=== PATIENT | male | born 1990 | race Caucasian/White ===

== ENCOUNTER 2021-07-23 16:45 | Emergency (ER) | payer BC, SELFPAY ==
[2021-07-23 16:53] VITALS: BP 135/76; PULSE 95; RESP 16; TEMP 36.8; O2SAT 99
--- NOTE | 2021-07-23 16:56 | ED.SKABFB ---
HPI - Skin/Abscess/Foreign Bdy General Chief complaint: Skin/Abscess/Foreign Body Stated complaint: rash Time Seen by Provider: 07/23/21 16:50 Source: patient and RN notes reviewed History of Present Illness HPI narrative: Patient is a 31-year-old male who presents the urgent care with complaints of poison tobin to the torso, bilateral arms, and forehead. Patient states he also noticed areas on the groin. Believes he came in contact with the poison tobin on Wednesday and he has been treating it with Benadryl cream and calamine. Denies any other acute complaints. No acute distress noted. Patient aware of the plan of care. Some parts of this dictation were generated by voice recognition software and may contain typographical and/or grammatical inaccuracies. Related Data Allergies Allergy/AdvReac Type Severity Reaction Status Date / Time No Known Allergies Allergy Verified 07/23/21 16:53 Review of Systems Review of Systems: CONSTITUTIONAL: Denies fever, chills, or sweats. EYES: Denies visual changes, redness, or discharge. ENT: Denies rhinorrhea, congestion, sore throat, or otalgia. CARDIOVASCULAR: Denies chest pain, palpitations, or edema. RESPIRATORY: Denies cough or dyspnea. GASTROINTESTINAL: Denies abdominal pain, nausea, vomiting, or diarrhea. GENITOURINARY: Denies dysuria or hematuria. SKIN: Reports of poison tobin to bilateral arms, right torso, groin and forehead MUSCULOSKELETAL: Denies back pain, joint pain, or myalgia. NEUROLOGIC: Denies headache, numbness, or weakness. All other systems reviewed are negative, except as documented in HPI. PMFSH Comments At the time of my signature, I reviewed and agree with the nursing past medical, surgical, social, and family history. There is no relevant family history pertinent to the patient complaint. Exam Narrative: GENERAL: This is a well-nourished, well-developed patient, in no apparent distress. HEAD: normocephalic, atraumatic. EYES: PERRL. Sclera clear/white. Vision is grossly intact. EARS: External ears normal NOSE: External nose normal with no obvious nasal discharge, nares without redness, no rhinorrhea. THROAT: Mucous membranes moist NECK: Neck supple CARDIOVASCULAR: Regular rate and rhythm without murmurs, gallops, or rubs. RESPIRATORY: Clear to auscultation. Breath sounds equal bilaterally. No wheezes, rales, or rhonchi. SKIN: Pruritic erythemic Rhus dermatitis noted to bilateral lower arms, right torso, mid forehead, and reported to the groin NEURO: awake, alert, and oriented to person, place and time. There were no obvious focal neurologic abnormalities. EXTREMITIES: No clubbing, cyanosis, or edema. Course Vital Signs Vital signs: Vital Signs Temperature 98.2 F 07/23/21 16:53 Pulse Rate 95 07/23/21 16:53 Respiratory Rate 16 07/23/21 16:53 Blood Pressure 135/76 07/23/21 16:53 Pulse Oximetry 99 07/23/21 16:53 Temperature 98.2 F 07/23/21 16:53 Pulse Rate 95 07/23/21 16:53 Respiratory Rate 16 07/23/21 16:53 Blood Pressure 135/76 07/23/21 16:53 Pulse Oximetry 99 07/23/21 16:53 Reviewed MDM - Skin/Abscess/Foreign Bdy MDM Narrative Medical decision making narrative: Advised the patient to complete the steroid regimen as prescribed. Be sure to eat and drink with the medication. Use the prescription cream to the affected areas as directed avoiding the groin, underarms and near the eyes. Continue to use [id number] itch relief cream if necessary. Also use TecNu scrub daily while showering. If you develop any increase spread of the rash to the eyes?go to the emergency room. Follow-up with your PCP within 2 to 5 days or for worsening symptoms or failure to improve. Differential Diagnosis Differential diagnosis: Likely abscess of skin or subcutaneous tissue, dermatophytosis, urticaria, eczema, insect bites, impetigo and contact dermatitis Critical Care Time Critical Care Time Critical Care Time: No Discharge Plan Discharge Cl
== END 2021-07-23 17:03 | disposition home or self-care (01) ==
PROVIDERS: Emergency Provider Nurse Practitioner Family; PCP Physician Assistant
DX: L23.7 Allergic contact dermatitis due to plants, except food (principal)
CPT/HCPCS: 99213; G0463

== ENCOUNTER 2022-07-08 20:49 | Emergency (ER) | payer BC, SELFPAY ==
[2022-07-08 20:55] VITALS: BP 150/95; PULSE 96; RESP 18; TEMP 36.7; O2SAT 99
[2022-07-08 22:03] LABS: Basophils Absolute Auto 0.1 K/mm3 (0.0-0.1); Basophils Percent Auto 0.5 % (0.2-1.2); Eosinophils Absolute Auto 0.1 K/mm3 (0-0.3); Eosinophils Percent Auto 1.2 % (0-4.4); Hematocrit 45.4 % (42.0-52.0); Hemoglobin 15.8 g/dL (14.0-18.0); Immature Granulocyte Absolute 0.04 K/mm3 (0.00-0.031); Immature Granulocyte Percent A 0.4 % (0-0.5); Lymphocytes Percent Auto 19.8 % (18.3-44.2); Mean Corpuscular HGB Conc 34.8 g/dl (32-36); Mean Corpuscular Hemoglobin 30.9 pg (26-34); Mean Corpuscular Volume 88.7 fl (80-100); Monocytes Absolute Auto 0.5 K/mm3 (0.1-0.6); Monocytes Percent Auto 4.4 % (2.6-8.5); Neutrophils Absolute Auto 8.2 K/mm3 (1.3-6.7); Neutrophils Percent Auto 73.7 % (45.5-73.1); Platelet Count Result 365 k/mm3 (150-375); Red Blood Count 5.12 M/mm3 (4.6-6.20); Red Cell Distribution Width 12.6 % (11.5-14.5); White Blood Count 11.1 K/mm3 (4.5-10.0)
[2022-07-08 22:06] LABS: Appearance Urine Clear (Clear); Bilirubin Urine 1+ (Negative); Blood Urine Negative (Negative); Color Urine Yellow (Yellow); Glucose Urine UA Negative (Negative); Ketones Urine Trace mg/dL (Negative); Leukocyte Esterase Ur Negative LEU/UL (Negative); Nitrate Urine Negative (Negative); Protein Urine Negative (Negative); Specific Grav Ur >= 1.030 (1.001-1.035); Urobilinogen Urine 0.2 mg/dL (<2.0); pH Urine 5.5 (5.0-9.0)
[2022-07-08 22:16] LABS: Alanine Aminotransferase 30 U/L (6-50); Alkaline Phosphatase 99 U/L (38-126); Anion Gap 15 mmol/L (8-16); Aspartate Amino Transferase 31 U/L (17-59); Bilirubin,Total 0.6 mg/dL (0.2-1.3); Blood Urea Nitrogen 11 mg/dL (9-20); Calcium 9.3 mg/dL (8.4-10.2); Carbon Dioxide 24 mmol/L (22-30); Chloride 105 mmol/L (98-107); Estimated CRCL calculation 168 ml/min; Estimated Glomerular Filt Rate > 60; Glucose 118 mg/dL (65-110); Potassium 3.6 mmol/L (3.4-5.0); Sodium 144 mmol/L (137-145)
[2022-07-08 22:17] LABS: Ethanol < 10 mg/dL (<10)
[2022-07-08 22:17] LABS: Amphetamine Screen Urine Negative (Negative); Barbiturate Screen Urine Negative (Negative); Benzodiazepines Screen Urine Negative (Negative); Cannabinoid Screen Urine Positive (Negative); Cocaine Screen Urine Negative (Negative); Methadone Screen Urine Negative (Negative); Opiate Screen Urine Negative (Negative); Phencyclidine Screen Urine Negative (Negative)
[2022-07-08 22:18] LABS: Add Urine Microscopic? YES; Mucus Urine Rare /lpf; RBC Urine 0-2 /hpf (0-2); WBC Urine 0-3 /hpf
--- NOTE | 2022-07-08 22:25 | ED.PSYCH ---
HPI - Psych General Chief Complaint: Psychiatric Symptoms Stated Complaint: suicidal Time Seen by Provider: 07/08/22 21:16 History of Present Illness HPI Narrative: Patient states he has been in a lot of stress, he has been fighting with his baby's mother, and 2 days ago he had strong feelings of wanting to hurt himself, though he has no plan. He had told his brother that he would get his car. He states that he is not currently entertaining thoughts of hurting himself at this time, he just had his baby daughter born yesterday and he is excited and thrilled and wants to be there for her. Currently taking sertraline and Concerta, and seeing a psychiatrist, but has not been able to get into see a therapist yet. Related Data Allergies Allergy/AdvReac Type Severity Reaction Status Date / Time No Known Allergies Allergy Verified 07/08/22 21:03 Review of Systems Review of Systems: CONST: No fever. HEENT: No sore throat C/V: No chest pain RESP: No cough GI: No abdominal pain : No dysuria. M/S: No joint pain. SKIN: No rash. NEURO: [No headache or focal numbness or weakness] PSYCH: Anxious, no suicidal ideation currently [facility] Past Medical History Medical History (Updated 07/09/22 @ 08:16 by Bonnie Terrell MD) Depression Social History Social History Substance use type: does not use Exam Narrative: EXAMINATION OF ORGAN SYSTEMS/BODY AREAS: Constitutional: Vital signs per nursing GENERAL:[No acute distress, non-toxic appearing.] HEAD: Normal with no signs of head trauma. EYES: EOMI, conjunctiva normal ENT: Hearing grossly intact LUNGS: Nonlabored breathing. HEART: [Regular rate and rhythm] ABD: Nondistended EXT: Normal range of motion SKIN: [No rashes or lesions.] NEURO: [Alert and oriented x 3. No gross focal sensory or strength deficits.] PSYCH: Normal affect Course Vital Signs Vital signs: Vital Signs Temperature 98.1 F 07/08/22 20:55 Pulse Rate 96 07/08/22 20:55 Respiratory Rate 18 07/08/22 20:55 Blood Pressure 150/95 H 07/08/22 20:55 Pulse Oximetry 99 07/08/22 20:55 Oxygen Delivery Room Air 07/08/22 20:55 Temperature 98.1 F 07/08/22 20:55 Pulse Rate 72 07/09/22 04:17 Respiratory Rate 18 07/09/22 04:17 Blood Pressure 145/77 H 07/09/22 04:17 Pulse Oximetry 98 07/09/22 04:17 Oxygen Delivery Room Air 07/08/22 20:55 MDM - Psych MDM Narrative Medical decision making narrative: 32-year-old male presenting with depression and anxiety, vital signs stable, normal exam, labs only notable for cannabis. Medically cleared at this time for psychiatric evaluation. He was seen by psychiatry resident who in discussion with his mother in the room, did feel he was safe to go home, safety plan discussed, patient is denying any thoughts of wanting hurt himself at this time, I do feel he is stable for discharge and he is to follow-up with his psychiatrist and return for any further issues. Lab Data Result diagrams: 07/08/22 21:55 07/08/22 21:54 Labs: Lab Results 07/08/22 07/08/22 07/08/22 Range/Units 21:54 21:54 21:55 WBC (4.5-10.0) K/mm3 RBC (4.6-6.20) M/mm3 Hgb (14.0-18.0) g/dL Hct (42.0-52.0) % MCV (80-100) fl MCH (26-34) pg MCHC (32-36) g/dl RDW (11.5-14.5) % Plt Count (150-375) k/mm3 MPV (7.4-10.4) fl Immature Gran % (Auto) (0-0.5) % Neut % (Auto) (45.5-73.1) % Lymph % (Auto) (18.3-44.2) % Thomas % (Auto) (2.6-8.5) % Eos % (Auto) (0-4.4) % Baso % (Auto) (0.2-1.2) % Lymph # (Auto) (0.9-3.2) K/mm3 Thomas # (Auto) (0.1-0.6) K/mm3 Eos # (Auto) (0-0.3) K/mm3 Baso # (Auto) (0.0-0.1) K/mm3 Abs Immat Gran (auto) (0.00-0.031) K/mm3 Absolute Neuts (auto) (1.3-6.7) K/mm3 Absolute Nucleated RBC (0.0-0.012) K/mm3 Nucleated RBC % (0.0-0.2) % Sodium 144 (137-145) mmol/L Potassium 3.6 (3.4-5.0) mmol/L Chlori
[2022-07-08 22:39] LABS: SARS-CoV-2 RNA PCR Negative
[2022-07-08 22:46] LABS: Thyroid Stimulating Hormone 0.752 uIU/mL (0.465-4.680)
--- NOTE | 2022-07-09 01:17 | PC.NURSE ---
Per ED Charge Nurse Jennifer and EDP Xander we are able to pull the sitter off of this patient because he is no risk at this time.
[2022-07-09 04:17] VITALS: BP 145/77; PULSE 72; RESP 18; O2SAT 98
== END 2022-07-09 04:21 | disposition home or self-care (01) ==
PROVIDERS: Emergency Medicine; Emergency Provider Emergency Medicine; PCP Physician Assistant
DX: F32.A Depression, unspecified (principal); Z20.822 Contact with and (suspected) exposure to COVID-19
CPT/HCPCS: 36415; 80053; 80307; 81001; 84443; 85025; 99284; C9803; U0003; U0005

== ENCOUNTER 2023-07-04 12:06 | Emergency (ER) | payer BC, SELFPAY ==
[2023-07-04] VITALS (7 sets, daily range): BP systolic 122–126; BP diastolic 69–80; PULSE 58–86; RESP 13–20; TEMP 36.8; O2SAT 97–100
--- NOTE | ~2023-07-04 | CT_ITS ---
EXAMINATION: CT brain wo con INDICATION: Severe headache COMPARISON: None TECHNIQUE: Standard unenhanced head CT. The dose-length product (DLP) was 605.33 mGy-cm. The mA was a djusted according to patient size. Iterative reconstruction technique was employed. FINDINGS: No intracranial hemorrhage, acute infarction, or abnormal mass lesion. The ventricles are n ormal. No abnormal mass effect or midline shift. The garcia-white matter differentiation is normal. The basal cisterns are patent. Gaze appears disconjugate. The orbits are normal. The paranasal sinuses, mastoids and calvarium are normal. IMPRESSION: 1. No acute intracranial abnormality. Reviewed, dictated and finalized at location A.
--- NOTE | 2023-07-04 13:16 | ED.GENADULT ---
HPI - General Adult General Chief complaint: Headache Stated complaint: headaches/aggressive thoughts Time Seen by Provider: 07/04/23 12:55 Source: patient and RN notes reviewed Mode of arrival: ambulatory Limitations: no limitations History of Present Illness HPI narrative: This is a 33 year old male with history of Bipolar who presents for evaluation of headaches. PAtient states 3-4 months ago he hit back of his head on a cabinet. He states he has had intermittent severe headaches since this injury. He did not receive medical evaluation after that injury. He states today he had a severe headache although it has resolved now. He has intermittent nausea. He has noticed a couple of abnormal areas to his posterior scalp concerning for fracture. He denies fever or chills. HE reports increase verbal aggression with people in his life. HE denies homicidal or suicidal ideations today. Related Data Allergies Allergy/AdvReac Type Severity Reaction Status Date / Time No Known Allergies Allergy Verified 07/04/23 12:13 Review of Systems Constitutional: Constitutional: Denies weakness Cardiovascular: Cardiovascular: Denies syncope, Denies rapid heart rate, Denies irregular heart rhythm, Denies leg edema and Denies dyspnea Respiratory: Respiratory: Denies chest congestion, Denies hemoptysis, Denies excessive phlegm production and Denies dyspnea Gastrointestinal: Gastrointestinal: Denies abdominal pain, Denies hematochezia, Denies diarrhea and Denies vomiting Genitourinary: Genitourinary: Denies hematuria, Denies dysuria, Denies penile discharge and Denies testicular pain Musculoskeletal: Musculoskeletal: Denies joint swelling, Denies loss of height and Denies muscle weakness Neurologic: Denies syncope, Reports headache(s), Denies focal weakness and Denies weakness Psychiatric: Psychiatric: Reports anxiety and Reports depression PMFSH Past Medical History Medical History Bipolar disorder Depression Social History Social History (Updated 07/04/23 @ 13:22 by Lauren Trevino MD) Smoking status: Current every day smoker Tobacco type: e-cigarettes/vaping Substance use: current Substance use type: marijuana and other Exam Const: General: no acute distress and alert Nutritional Appearance: well nourished Orientation/consciousness: patient oriented x3 HENMT: Ears: external ears normal Face and sinus: normal facial exam Mouth: Yes Normal oral and palatal mucosa present, Yes lip normal and Yes moist mucous membranes Throat: uvula midline Eyes: Pupils: Equal, round and reactive pupils present EOM: EOMs intact bilaterally Neck: Neck: normal visual inspection Chest: Chest palpation & inspection: normal inspection of the chest Resp: Effort & Inspection: normal respiratory effort Neuro: General: patient oriented x3, moves all extremities and CN's II-XI intact bilaterally Cranial nerves: Yes Nystagmus not present Speech: normal speech Gait exam (Neuro): Normal gait present Extrem: General: normal to inspection Psych: Mental Status: mental status grossly normal Affect: normal affect Attitude: cooperative Course Reevaluation(s) Reevaluation #1: I Discussed with patient that CT brain was unremarkable. He will follow up with psych and PCP. no SI/HI, no psych assessment Date: 07/04/23 Time: 14:16 Vital Signs Vital signs: Vital Signs Temperature 98.3 F 07/04/23 12:09 Pulse Rate 86 07/04/23 12:09 Respiratory Rate 18 07/04/23 12:09 Blood Pressure 124/80 07/04/23 12:09 Pulse Oximetry 99 07/04/23 12:09 Oxygen Delivery Room Air 07/04/23 12:09 Temperature 98.3 F 07/04/23 12:09 Pulse Rate 58 L 07/04/23 14:38 Respiratory Rate 13 07/04/23 14:38 Blood Pressure 126/69 07/04/23 14:38 Pulse Oximetry 100 07/04/23 14:38 Oxygen Delivery Room Air 07/04/23 12:09 Medical Decision Making Vital Signs Vital Signs: Chantelle
--- NOTE | 2023-07-04 13:28 | PC.NURSE ---
pt taken to CT at this time
--- NOTE | 2023-07-04 13:39 | PC.NURSE ---
pt back in room [address]
== END 2023-07-04 14:40 | disposition home or self-care (01) ==
PROVIDERS: Emergency Provider General Practice
DX: R51.9 Headache, unspecified (principal); F17.290 Nicotine dependence, other tobacco product, uncomplicated
CPT/HCPCS: 70450; 99284

== ENCOUNTER 2023-08-23 18:27 | Emergency (ER) | payer BC, SELFPAY ==
[2023-08-23 18:36] VITALS: BP 136/84; PULSE 92; RESP 16; TEMP 36.8; O2SAT 99
[2023-08-23 19:06] LABS: Basophils Absolute Auto 0.1 K/mm3 (0.0-0.1); Basophils Percent Auto 0.6 % (0.2-1.2); Eosinophils Absolute Auto 0.1 K/mm3 (0-0.3); Eosinophils Percent Auto 1.3 % (0-4.4); Hematocrit 44.8 % (42.0-52.0); Hemoglobin 15.5 g/dL (14.0-18.0); Immature Granulocyte Absolute 0.02 K/mm3 (0.00-0.031); Immature Granulocyte Percent A 0.2 % (0-0.5); Lymphocytes Absolute Auto 2.19 K/mm3 (0.9-3.2); Mean Corpuscular HGB Conc 34.6 g/dl (32-36); Mean Corpuscular Hemoglobin 30.5 pg (26-34); Mean Corpuscular Volume 88.2 fl (80-100); Mean Platelet Volume 10.7 fl (7.4-10.4); Monocytes Absolute Auto 0.6 K/mm3 (0.1-0.6); Monocytes Percent Auto 6.7 % (2.6-8.5); Neutrophils Absolute Auto 6.5 K/mm3 (1.3-6.7); Neutrophils Percent Auto 68.2 % (45.5-73.1); Platelet Count Result 313 k/mm3 (150-375); Red Blood Count 5.08 M/mm3 (4.6-6.20); Red Cell Distribution Width 12.2 % (11.5-14.5); White Blood Count 9.5 K/mm3 (4.5-10.0)
--- NOTE | 2023-08-23 19:15 | PC.NURSE ---
Report from PANCHO Rodriguez. Assumed care of pt. Pt resting quietly per cart in nad at this time. Visitor at bedside. Sitter within line of sight, just outside door. Pt Calm and cooperative at this time. Plan of care updated with pt.
[2023-08-23 19:18] LABS: Alanine Aminotransferase 31 U/L (6-50); Alkaline Phosphatase 107 U/L (38-126); Anion Gap 13 mmol/L (8-16); Aspartate Amino Transferase 28 U/L (17-59); Bilirubin,Total 1.1 mg/dL (0.2-1.3); Blood Urea Nitrogen 9 mg/dL (9-20); Calcium 9.6 mg/dL (8.4-10.2); Carbon Dioxide 24 mmol/L (22-30); Chloride 103 mmol/L (98-107); Estimated CRCL calculation 189 ml/min; Estimated Glomerular Filt Rate > 60; Glucose 96 mg/dL (65-110); Potassium 3.9 mmol/L (3.4-5.0); Sodium 140 mmol/L (137-145)
[2023-08-23 19:19] LABS: Acetaminophen < 10 ug/mL (10-30); Ethanol < 10 mg/dL (<10); Salicylate < 1.0 mg/dL (2-20)
[2023-08-23 19:30] LABS: Add Urine Microscopic? YES; Appearance Urine Turbid (Clear); Bacteria Urine None Seen /hpf; Bilirubin Urine Negative (Negative); Blood Urine Negative (Negative); Color Urine Yellow (Yellow); Glucose Urine UA Negative (Negative); Ketones Urine 2+ mg/dL (Negative); Leukocyte Esterase Ur Negative LEU/UL (Negative); Mucus Urine Present /lpf; Need Manual Microscopic Reviewed; Nitrate Urine Negative (Negative); Non Pathogenic Casts 0-2; Protein Urine Negative (Negative); RBC Urine 0-2 /hpf (0-2); Specific Grav Ur 1.022 (1.001-1.035); Squamous Epithelial Cell Urine None seen /hpf (Few); WBC Urine 0-5 /hpf
--- NOTE | 2023-08-23 19:34 | ED.GENADULT ---
[facility] - General Adult General Chief complaint: Psychiatric Symptoms Stated complaint: i need to be in the hospital Time Seen by Provider: 08/23/23 19:07 History of Present Illness HPI narrative: Patient presents the emergency department suicidal ideations. He has attempted suicide in the past. He has been thinking about suicide and being depressed for a while. Plan today was to hang himself. He sees a therapist in his psych medications were recently changed. States he feels worse since the change. He is accompanied by family. Denies all medical complaints. Denies any alcohol or drug use. Related Data Allergies Allergy/AdvReac Type Severity Reaction Status Date / Time No Known Allergies Allergy Verified 08/23/23 18:39 Review of Systems Review of Systems: Review of systems negative except what is documented in the [facility] Past Medical History Medical History Bipolar disorder Depression Social History Social History (Updated 07/04/23 @ 13:22 by Lauren Trevino MD) Smoking status: Current every day smoker Tobacco type: e-cigarettes/vaping Substance use: current Substance use type: former substance user Exam Narrative: GENERAL: Well-appearing, well-nourished, and in no acute distress. HEAD: Normocephalic, atraumatic. EYES: PERRLA and EOMI. ENT: Nares clear, no rhinorrhea or epistaxis. Mucous membranes moist. NECK: Supple. CHEST: Clear to auscultation. No respiratory distress. HEART: Regular rate and rhythm. ABDOMEN: Soft, nontender, nondistended. EXTREMITIES: Normal range of motion. No edema. SKIN: Warm, dry, no rash. NEURO: No focal deficits. Alert and oriented x3. PSYCH: Normal mood and affect. Course Vital Signs Vital signs: Vital Signs Temperature 36.8 C 08/23/23 18:36 Pulse Rate 92 08/23/23 18:36 Respiratory Rate 16 08/23/23 18:36 Blood Pressure 136/84 08/23/23 18:36 Pulse Oximetry 99 08/23/23 18:36 Temperature 36.8 C 08/23/23 18:36 Pulse Rate 92 08/23/23 18:36 Respiratory Rate 16 08/23/23 18:36 Blood Pressure 136/84 08/23/23 18:36 Pulse Oximetry 99 08/23/23 18:36 Medical Decision Making MDM Narrative Medical decision making narrative: Labs grossly unremarkable. Vital signs stable. Patient is medically cleared for psych evaluation and possible placement Pt accepted as transfer to [facility] by Dr Alejandra Vital Signs Vital Signs: Vital Signs Temperature 36.8 C 08/23/23 18:36 Pulse Rate 92 08/23/23 18:36 Respiratory Rate 16 08/23/23 18:36 Blood Pressure 136/84 08/23/23 18:36 Pulse Oximetry 99 08/23/23 18:36 Temperature 36.8 C 08/23/23 18:36 Pulse Rate 92 08/23/23 18:36 Respiratory Rate 16 08/23/23 18:36 Blood Pressure 136/84 08/23/23 18:36 Pulse Oximetry 99 08/23/23 18:36 Lab Data 08/23/23 18:56 08/23/23 18:56 Labs: Lab Results 08/23/23 08/23/23 08/23/23 Range/Units 18:56 18:57 20:56 WBC 9.5 (4.5-10.0) K/mm3 RBC 5.08 (4.6-6.20) M/mm3 Hgb 15.5 (14.0-18.0) g/dL Hct 44.8 (42.0-52.0) % MCV 88.2 (80-100) fl MCH 30.5 (26-34) pg MCHC 34.6 (32-36) g/dl RDW 12.2 (11.5-14.5) % Plt Count 313 (150-375) k/mm3 MPV 10.7 H (7.4-10.4) fl Immature Gran % (Auto) 0.2 (0-0.5) % Neut % (Auto) 68.2 (45.5-73.1) % Lymph % (Auto) 23.0 (18.3-44.2) % Sierra % (Auto) 6.7 (2.6-8.5) % Eos % (Auto) 1.3 (0-4.4) % Baso % (Auto) 0.6 (0.2-1.2) % Lymph # (Auto) 2.19 (0.9-3.2) K/mm3 Sierra # (Auto) 0.6 (0.1-0.6) K/mm3 Eos # (Auto) 0.1 (0-0.3) K/mm3 Baso # (Auto) 0.1 (0.0-0.1) K/mm3 Abs Immat Gran (auto) 0.02 (0.00-0.031) K/mm3 Absolute Neuts (auto) 6.5 (1.3-6.7) K/mm3 Absolute Nucleated RBC 0.0 (0.0-0.012) K/mm3 Nucleated RBC % 0.0 (0.0-0.2) % Sodium 140 (137-145) mmol/L Potassium 3.9 (3.4-5.0)
[2023-08-23 20:49] LABS: Barbiturate Screen Urine Negative (Negative); Benzodiazepines Screen Urine Negative (Negative)
[2023-08-23 20:53] LABS: Amphetamine Screen Urine Negative (Negative); Cannabinoid Screen Urine Positive (Negative); Cocaine Screen Urine Negative (Negative); Methadone Screen Urine Negative (Negative); Opiate Screen Urine Negative (Negative); Phencyclidine Screen Urine Negative (Negative)
--- NOTE | 2023-08-23 21:31 | PC.NURSE ---
Crisis reports that they will arrive in approx 20 min.
[2023-08-23 21:39] LABS: Influenza A QL RT-PCR Negative (Negative); Influenza B QL RT-PCR Negative (Negative); RSV RNA, RT-PCR Negative (Negative); SARS-CoV-2 RNA PCR Negative (Negative)
--- NOTE | 2023-08-23 21:55 | PC.NURSE ---
Crisis at bedside.
--- NOTE | 2023-08-24 01:05 | PC.NURSE ---
Spoke with [facility] Intake for questions regarding possible placement. Pt sleeping at this time. Sitter remains within line of sight.
--- NOTE | 2023-08-24 01:42 | PC.NURSE ---
Report given to Adelaide tracy [facility]. Pt to go to [address] Alejandra.
[2023-08-24 01:52] VITALS: BP 120/77; PULSE 98; RESP 14; TEMP 36.8; O2SAT 100
== END 2023-08-24 03:59 ==
PROVIDERS: Emergency Medicine; Emergency Provider Emergency Medicine
DX: F32.A Depression, unspecified (principal); R45.851 Suicidal ideations
CPT/HCPCS: 36415; 80053; 80307; 81001; 84443; 85025; 87637; 99285

== ENCOUNTER 2024-06-25 12:09 | Emergency (ER) | payer BC, SELFPAY ==
[2024-06-25 12:17] VITALS: BP 156/91; PULSE 98; RESP 17; TEMP 36.6; O2SAT 99
--- NOTE | 2024-06-25 12:30 | PC.NURSE ---
Pt reports psychiatrist moved & did not notify pts. Next available appointment with psychiatrist that took over practice is January Pt states [facility] will not renew RX. Pt has been without meds for 5 days. Pt behavior appropriate & calm.
--- NOTE | 2024-06-25 13:21 | ED.GENADULT ---
HPI - General Adult General Chief complaint: Recheck/Abnormal Lab/Rx Stated complaint: med refill Time Seen by Provider: 06/25/24 12:43 History of Present Illness HPI narrative: This is a 34-year-old male with history of bipolar disorder on remote history requesting a medication refill. He takes Llamotrigine 100 mg b.i.d. for the last 6 months. He has changed psychiatrist and has been unable to get a prescription. He ran out 4 days ago. No SI HI. Patient is working on getting another physician. No other complaints Related Data Home Medications Medication Instructions Recorded Confirmed lamotrigine 100 mg tablet 200 mg 06/25/24 methylphenidate HCl 27 mg mg PO 06/25/24 tablet,extended release 24 hr (Concerta) Allergies Allergy/AdvReac Type Severity Reaction Status Date / Time No Known Allergies Allergy Verified 06/25/24 12:25 [facility] Past Medical History Medical History Bipolar disorder Depression Social History Social History Smoking status: Current every day smoker Tobacco type: e-cigarettes/vaping Substance use: current Substance use type: does not use Exam Narrative: APPEARANCE: No apparent distress. Head: atraumatic. EYES: EOMI, NOSE: Atraumatic NECK: Trachea midline RESPIRATORY: No increased rate of breathing clear to auscultation CARDIOVASCULAR: RRR, ABDOMINAL: Non-distended MUSCULOSKELETAl: No obvious deformities NEURO: Alert. Moving 4/4 extremities SKIN:: Warm, dry. Normal color PSYCHIATRIC: Normal affect Course Vital Signs Vital signs: Vital Signs Temperature 97.8 F 06/25/24 12:17 Pulse Rate 98 06/25/24 12:17 Respiratory Rate 17 06/25/24 12:17 Blood Pressure 156/91 H 06/25/24 12:17 Pulse Oximetry 99 06/25/24 12:17 Temperature 97.8 F 06/25/24 12:17 Pulse Rate 98 06/25/24 12:17 Respiratory Rate 17 06/25/24 12:17 Blood Pressure 156/91 H 06/25/24 12:17 Pulse Oximetry 99 06/25/24 12:17 Medical Decision Making MDM Narrative Medical decision making narrative: -Course: 34-year-old bipolar question medication refill. This was provided. Patient given referral to local PCP. Patient discharged Vital Signs Vital Signs: Vital Signs Temperature 97.8 F 06/25/24 12:17 Pulse Rate 98 06/25/24 12:17 Respiratory Rate 17 06/25/24 12:17 Blood Pressure 156/91 H 06/25/24 12:17 Pulse Oximetry 99 06/25/24 12:17 Temperature 97.8 F 06/25/24 12:17 Pulse Rate 98 06/25/24 12:17 Respiratory Rate 17 06/25/24 12:17 Blood Pressure 156/91 H 06/25/24 12:17 Pulse Oximetry 99 06/25/24 12:17 Discharge Plan Discharge Clinical Impression: Encounter for medication refill, Bipolar disorder Patient Disposition: Home, Self-Care Condition: Stable Instructions: Antibiotic Form, Bipolar Disorder (DC) Additional Instructions: Please follow-up with the primary care physician's low or a psychiatrist severe own choosing. Please return if you have any other medical needs. Prescriptions: New lamotrigine [Lamictal] 100 mg tablet 100 mg PO BID Qty: 60 0RF No Action methylphenidate HCl [Concerta] 27 mg tablet extended release 24hr PO lamotrigine 100 mg tablet 200 mg Follow-up/Referrals: Davi Berman MD [Physician] - 1 Week PHYSICIAN,TITLE CURATOR [Primary Care Provider] -
== END 2024-06-25 13:46 | disposition home or self-care (01) ==
PROVIDERS: Emergency Provider Emergency Medicine
DX: Z76.0 Encounter for issue of repeat prescription (principal); F31.9 Bipolar disorder, unspecified
CPT/HCPCS: 99281